=== PATIENT | male | born 1940 | race Caucasian/White ===

== ENCOUNTER → 2019-01-01 | Day surgery (SDC) | payer MEDICARE ==
[2019-01-01 11:01] VITALS: RESP 20; TEMP 98
[2019-01-01 12:23] VITALS: BP 143/89; PULSE 99
--- NOTE | 2019-01-01 12:53 | PCN ---
PROCEDURE NOTE PROCEDURE: Left thoracentesis. Indication Pleural effusion. A time-out was completed verifying correct patient, procedure, site, positioning , and implant (s) or special equipment if applicable. Ultrasound guidance was used and appropriate fluid pocket was identified and marked. Patient was positioned, prepped and draped in usual sterile fashion. Lidocaine was used to anesthetize the area. A Thoracentesis catheter was introduced into the pleural space and fluid was removed. Blood loss was none. A chest x-ray was ordered to evaluate for pneumothorax. Total Fluid Removed: 2 L Color of Fluid: Dark yellow-red Fluid was sent for appropriate laboratory tests. Patient tolerated the procedure well and there were no complications. Two L of dark yellow red fluid was removed from the left pleural space. There was informed consent and universal timeout. The patient tolerated the procedure well. There was no immediate complications. The chest x-ray was ordered to rule out pneumothorax. If pneumothorax is not present, the patient will be discharged home. The fluid was sent for analysis. MMODL / IJN: [id number] /
--- NOTE | 2019-01-01 12:55 | XR ---
EXAMINATION TYPE: XR chest 1V portable DATE OF EXAM: 01/01/2019 HISTORY: Status post thoracentesis COMPARISON: None. TECHNIQUE: Single view of the chest is submitted. FINDINGS: Demonstrated are scattered senescent parenchymal change. There is no evidence for pneumothorax. Moderate left sided opacity persists which may reflect a [place]i [place] of effusion, atelectasis and/or infiltrate. Underlying mass is not excluded. The heart is stable. Hilar and mediastinal structures are within normal limits. Degenerative changes are seen of the dorsal spine. IMPRESSION: 1. There is no evidence for pneumothorax. Moderate left sided opacity persists which may reflect a c ombination of effusion, atelectasis and/or infiltrate. Underlying mass is not excluded.
[2019-01-01 15:42] LABS: Appearance,BF Hazy; Color,BF Yellow
[2019-01-01 15:43] LABS: Nucleated Cells, Body Fluid 500 /uL; RBC, Body Fluid 5100 /uL
[2019-01-01 15:47] LABS: Mononuclear WBC,Body Fluid 93 %; Polynuclear WBC,Body Fluid 6 %; Total Cells Counted,Body Fluid 100
[2019-01-01 19:54] LABS: Total Protein, Body Fluid 3700 mg/dL
== END ==
LOC: PROCWHC3 10:25
PROVIDERS: ATTEND Internal Medicine Critical Care Medicine
DX: J90 Pleural effusion, not elsewhere classified (principal)
CPT/HCPCS: 32554; 71045; 82945; 83615; 84157; 87070; 87205; 88108; 88305; 89050

== ENCOUNTER → 2019-01-01 | Outpatient (CLI) | payer MEDICARE ==
--- NOTE | 2019-01-01 10:36 | US ---
EXAMINATION TYPE: US chest DATE OF EXAM: 01/01/2019 COMPARISON: NONE CLINICAL HISTORY: Pleural Effusion J90. Left Pleural effusion and thoracentesis is scheduled with Dr Johnson at 12:00 today TECHNIQUE: Targeted ultrasound of the posterior left and right chest (for comparison) EXAM MEASUREMENTS: Right Pleural Effusion pocket size: no fluid seen Left Pleural Effusion pocket size: 14.1 cm with echogenic debris noted in posterior portion of this measured fluid pocket. Left skin surface to fluid distance: 3.6 cm Left side marked for possible thoracentesis outside the dept. Pulmonologists are able to review the images in the patient?s EMR. IMPRESSIONS: 1. Left-sided pleural effusion is noted.
== END | disposition home or self-care (01) ==
LOC: RADUSWWP 10:05
PROVIDERS: ATTEND Internal Medicine Critical Care Medicine
DX: J90 Pleural effusion, not elsewhere classified (principal)
CPT/HCPCS: 76604